=== PATIENT | male | born 1975 | race Caucasian/White ===

== ENCOUNTER → 2023-07-16 15:30 | Outpatient (CLI) | payer OTHER, SELFPAY ==
[2023-07-16 19:52] LABS: Basophils # 0.1 K/mm3 (0-0.2); Basophils % 0.9 % (0.1-2.0); Eosinophils # 0.2 K/mm3 (0.0-0.4); Eosinophils % 1.9 % (0.1-12.0); Hematocrit 46.4 % (42.0-52.0); Hemoglobin 15.9 g/dL (14.1-18.0); Lymphocytes # 2.6 K/mm3 (0.7-4.5); Lymphocytes % 30.7 % (10-50); Mean Corpuscular HGB Conc 34.2 g/dL (31.8-35.4); Mean Corpuscular Hemoglobin 29.9 pg (27.0-31.2); Mean Corpuscular Volume 87.5 fl (80-94); Mean Platelet Volume 9.4 fl (7.4-10.4); Monocytes # 0.5 K/mm3 (0.1-1.0); Neutrophils # 5.1 K/mm3 (1.8-7.8); Neutrophils % 60.5 % (37.0-80.0); Platelet Count 284 K/mm3 (142-424); Red Blood Count 5.31 M/mm3 (4.60-6.20); White Blood Count 8.4 K/mm3 (4.8-10.8)
[2023-07-16 20:19] LABS: 25-OH Vitamin D, Total 24.7 ng/mL (30-100)
[2023-07-16 20:24] LABS: Alanine Aminotransferase 36 U/L (12-78); Albumin Level 4.6 g/dl (3.5-5.0); Albumin/Globulin Ratio 1.4 (1.1-1.8); Alkaline Phosphatase 123 U/L (38-126); Anion Gap 16.1 mEq/L (5-15); Aspartate Amino Transferase 30 U/L (17-59); Bilirubin,Total 0.4 mg/dl (0.2-1.3); Blood Urea Nitrogen 8 mg/dl (9-20); Calcium 9.7 mg/dl (8.4-10.2); Carbon Dioxide 26 mmol/L (22.0-30.0); Chloride 98 mmol/L (98-107); Estimated Glomerular Filt Rate 143 ml/min (>60); GFR (African American) 173 ML/MIN (>60); Globulin 3.2 g/dL (1.3-3.2); Glucose 353 mg/dl (74-100); Potassium 4.1 mmoL/L (3.5-5.1); Sodium 136 mmol/L (136-145); Total Protein,Serum 7.8 g/dl (6.3-8.2)
[2023-07-16 20:57] LABS: Prostate Specific Ag Screen 0.8 ng/ml (0.0-4.0); Thyroid Stimulating Hormone 0.46 uIU/mL (0.465-4.68)
[2023-07-16 21:31] LABS: Hemoglobin A1C 10.3 % (4.0-6.0)
[2023-07-16 21:54] LABS: Microalbumin/Creatinine Ratio 11.6
[2023-07-16 21:58] LABS: Creatinine,Urine Random 59 mg/dL (Not Estab.)
== END ==
LOC: LAB.DROPOF 07-17 09:50
PROVIDERS: PCP Internal Medicine; Visit Provider Internal Medicine
DX: E11.9 Type 2 diabetes mellitus without complications (principal); E55.9 Vitamin D deficiency, unspecified; Z12.5 Encounter for screening for malignant neoplasm of prostate
CPT/HCPCS: 80053; 82043; 82306; 82570; 83036; 84443; 85025; G0103

== ENCOUNTER 2024-07-22 10:42 | Outpatient (CLI) | payer OTHER, SELFPAY ==
[2024-07-22 19:13] LABS: Albumin Level 4.8 g/dl (3.5-5.0); Chloride 103 mmol/L (98-107)
[2024-07-22 19:14] LABS: Potassium 4.7 mmoL/L (3.5-5.1); Sodium 137 mmol/L (136-145)
[2024-07-22 19:16] LABS: Alanine Aminotransferase 31 U/L (12-78); Aspartate Amino Transferase 30 U/L (17-59); Blood Urea Nitrogen 9 mg/dl (9-20); Estimated Glomerular Filt Rate 102 ml/min (>60); GFR (African American) 124 ML/MIN (>60)
[2024-07-22 19:17] LABS: Albumin/Globulin Ratio 1.6 (1.1-1.8); Alkaline Phosphatase 75 U/L (38-126); Anion Gap 11.7 mEq/L (5-15); Bilirubin,Total 0.7 mg/dl (0.2-1.3); Calcium 9.7 mg/dl (8.4-10.2); Carbon Dioxide 27 mmol/L (22.0-30.0); Chol/HDL Ratio 7.1 (1-3.5); Cholesterol 207 mg/dl (140-200); Glucose 120 mg/dl (74-100); HDL Cholesterol 29 mg/dl (40-60); Total Protein,Serum 7.8 g/dl (6.3-8.2); Triglycerides 237 mg/dl (30-150); VLDL Cholesterol 47 mg/dL (0-40)
[2024-07-22 19:28] LABS: Direct LDL Cholesterol 133.75 mg/dL (100-129)
== END 2024-07-22 23:59 | disposition home or self-care (01) ==
LOC: LAB.DROPOF 07-23 10:42
PROVIDERS: PCP Family Medicine; Visit Provider Family Medicine
DX: E11.9 Type 2 diabetes mellitus without complications (principal); Z79.84 Long term (current) use of oral hypoglycemic drugs; Z79.85 Long-term (current) use of injectable non-insulin antidiabetic drugs; I10 Essential (primary) hypertension
CPT/HCPCS: 80053; 80061

== ENCOUNTER 2024-10-16 10:29 | Day surgery (SDC) | payer OTHER, BC, SELFPAY ==
--- NOTE | 2024-10-15 10:35 | SUR.PREOP ---
1035: Attempted to pre op. No VM set up.
[2024-10-16 10:52] VITALS: BP 137/75; PULSE 80; RESP 18; TEMP 36.4; O2SAT 97; BMI 31.8
--- NOTE | 2024-10-16 10:54 | EXP.ANES.CKL ---
[facility] Disclaimer: The information contained in this section may have been updated after the patient was seen, as this information can be updated by other users. Medical History (Updated 07/22/24 @ 17:40 by Marcelo Davis MD) Colon cancer screening Laceration of thumb Conjunctivitis Diabetes type 2, uncontrolled Left otitis media Sinus infection Bruxism History of fracture of right ankle Depression Diabetes Social History Smoking Status: Never smoker alcohol intake: never substance use type: denies use current occupational status: employed Travel in the last 8 weeks: None Have you lived/traveled outside [place] in past 30 days?: No Contact w/someone who lives/traveled outside [place] past 30 days?: No Exposure to someone with infectious disease in past 14 days?: No Do you have a fever (greater than 100.4 F or 38 C)?: No Have you tested positive for COVID-19: No Exposed to someone with COVID-19 in past 14 days?: No Do you have a sore throat?: No Do you have a cough?: No Do you have any weakness?: No Do you have any diarrhea?: No Are you experiencing any unusual bleeding?: No Do you have any muscle aches/pain?: No Do you have any abdominal pain?: No Are you experiencing loss of taste or smell?: No [facility] Anesthesia Checklist Patient Identification Patient Identification: Arm Band and Verbal (Name & ) Structural Data Admitted From: Home Planned Operative Procedure/s: Colonoscopy Consent for Planned Operative Procedure(s) Verified: Yes Verified Documents: Surgical Consent and History and Physical NPO Status Verified Time NPO: 09:15 Additional verifications Fingerstick Blood Glucose: 182 Patient : No Anesthesia Reactions: No Cardiovascular Assessment Heart Sounds: S1 & S2 Pulse Rhythm: Irregular Peripheral Edema: No Airway Assessment Mallampati Score:: Class II C-Spine Mobility Assessed: Yes (FROM demonstrated, but C-5 protrusion) TMJ Mobility Assessed: Yes Dentition: Good Dentition (Nothing loose per pt.) Neurological Assessment Level of Consciousness: Awake, Alert, Appropriate and Follows Commands Hx Seizures: No Numbness or tingling in extremities: No Anesthesia Plan Anesthesia Risk discussed: Yes Anesthesia Plan: Verified ASA Class: III Anesthesia Type: MAC
[2024-10-16] MEDS: LACTATED RINGERS 1000ML 1,000 ML 25 ML IV (11:05)
[2024-10-16 11:07] LABS: POC Glucose,Bedside 182 (70-110)
[2024-10-16 11:32] VITALS: O2SAT 100
--- NOTE | 2024-10-16 11:39 | P.HP_ITS ---
History of Present Illness *Admission Date: 10/16/24 *Reason for visit:: Screening for colon cancer *History of present illness: Mr. Sun is a 49-year-old gentleman who is here for initial screening colonoscopy. The patient's mother had colon cancer in her mid 70s. The examination is deemed medically necessary for screening colonoscopy. The patient has been seen, interviewed and examined prior to the procedure by both myself and the anesthesia provider. [facility] Disclaimer: The information contained in this section may have been updated after the patient was seen, as this information can be updated by other users. Medical History (Updated 10/16/24 @ 11:40 by Cory Ponce II, MD) Colon cancer screening Laceration of thumb Conjunctivitis Diabetes type 2, uncontrolled Left otitis media Sinus infection Bruxism History of fracture of right ankle Depression Diabetes Social History Smoking Status: Never smoker alcohol intake: never substance use type: denies use current occupational status: employed Travel in the last 8 weeks: None Have you lived/traveled outside [place] in past 30 days?: No Contact w/someone who lives/traveled outside [place] past 30 days?: No Exposure to someone with infectious disease in past 14 days?: No Do you have a fever (greater than 100.4 F or 38 C)?: No Have you tested positive for COVID-19: No Exposed to someone with COVID-19 in past 14 days?: No Do you have a sore throat?: No Do you have a cough?: No Do you have any weakness?: No Do you have any diarrhea?: No Are you experiencing any unusual bleeding?: No Do you have any muscle aches/pain?: No Do you have any abdominal pain?: No Are you experiencing loss of taste or smell?: No Other Medical History Have you received the Pneumonia Vaccine: No Review of Systems Review of Systems Review of systems (narrative): Negative *Cardiovascular Comments: Negative *Gastrointestinal Comments: Negative *Genitourinary Comments: Negative *Musculoskeletal Comments: Negative *Neurologic Comments: Negative Meds Home Medications and Allergies Home Medications ?Medication ?Instructions ?Recorded ?Confirmed ?Type amitriptyline 25 mg tablet 25 mg PO HS 07/07/24 10/16/24 History dapagliflozin propanediol 10 mg 10 mg PO DAILY 07/07/24 10/16/24 History tablet (Farxiga) fluoxetine 20 mg capsule 20 mg PO DAILY 07/07/24 10/16/24 History lancing device (TRUEdraw Lancing #1 ea 07/07/24 07/07/24 History Device) lisinopril 10 mg tablet 10 mg PO DAILY 07/07/24 10/16/24 History metformin 1,000 mg tablet 1,000 mg PO DAILY 07/07/24 10/16/24 History atorvastatin 20 mg tablet 20 mg PO DAILY #30 tabs 07/25/24 10/16/24 Rx semaglutide 1 mg/dose (4 mg/3 mL) 1 mg (0.75 mL) SQ QWEEK #3 mL 07/25/24 10/16/24 Rx subcutaneous pen injector (Ozempic) New Prescriptions to Start Prescriptions: Allergies Allergy/AdvReac Type Severity Reaction Status Date / Time No Known Allergies Allergy Verified 07/22/24 10:01 Exam Data for Last 24 hours Vital signs and Labs for Last 24 Hours: Temp Pulse Resp BP Pulse Ox O2 Del Method O2 Flow Rate 97.5 F L 80 18 137/75 97 Nasal Cannula 5 10/16/24 10:52 10/16/24 10:52 10/16/24 10:52 10/16/24 10:52 10/16/24 10:52 10/16/24 11:32 10/16/24 11:32 Laboratory Results - last 24 hr 10/16/24 10:58: POC Glucose 182 H I & O for Last 24 hours: Intake & Output 10/13/24 10/14/24 10/15/24 10/16/24 23:59 23:59 23:59 23:59 Weight 235 lb *Routine HEENT Exam Head: Present normocephalic Eye: Present EOMI and PERRL ENT: Present mucous membranes moist *Routine Neck Exam Neck: Present supple *Routine Respiratory Exam Respiratory: Present CTA bilaterally *Routine Cardiovascular Exam Cardiovascular: Present RRR *Routine Abdominal Exam Abdominal: Present soft and normoactive bowel sounds; Absent tenderness *Routine Rectal Exam Rectal:: deferred *Routine Genitalia Exam Genitalia:: deferred *Routine Extremities Exam Extremities: Absent cyanosis, clubbing or edema *Routine Skin Exam Skin: Present warm; Absent rash *Routine Neurological Exam Neurological: Present alert and oriented X3 Assessment and Plan *Assessment and plan (1) Colon cancer screening: Status: Acute Category: Medical Code(s): Z12.11 - Encounter for screening for malignant neoplasm of colon (2) Family history of colon cancer in mother: Status: Acute Category: Medical Code(s): Z80.0 - Family history of malignant neoplasm of digestive organs Plan A/P: 1. Screening for colon cancer is the preprocedural diagnosis. The patient's mother had colon cancer in her mid 70s. The patient will be anesthetized/sedated using MAC sedation. The patient has been seen and examined. Cardiac and lung assessment prior to the examination is stable. Proceed with planned initial screening colonoscopy
--- NOTE | 2024-10-16 11:41 | P.PCN_ITS ---
[facility] Procedure Note Date: 10/16/24 Time: 12:04 Procedure Note:: Colonoscopy Procedure Report: Colonoscopy with cold snare polypectomy Endoscopist: Cory Ponce II, MD Referring physician: Marcelo Davis MD Date of Procedure: October 16, 2023 Equipment: Olympus 190 variable stiffness pediatric colonoscope Sedation: MAC sedation Indication: Mr. uSn is a 49-year-old gentleman who is here for initial screening colonoscopy. His mother had colon cancer in her mid 70s. He reports no abdominal pain, weight loss, change in his bowel habits or rectal bleeding. Procedure: Prior to the procedure, a history and physical exam was performed, and patient's medications and allergies were reviewed. The risks, benefits and alternatives of the sedation and procedure were discussed with the patient. All questions were answered and informed consent was obtained. The patient was brought to the procedure room. Patient identification and proposed procedure were verified by the physician and the nurse. The patient was placed in a left lateral decubitus position and the scope was passed under direct vision. Throughout the procedure, the patient's blood pressure, pulse, and oxygen saturations were monitored continuously. The colonoscopy was accomplished without difficulty. The patient tolerated the procedure well. Findings: On digital rectal examination there was normal rectal tone. There were no external hemorrhoids. The prostate was 2+, mildly firm but symmetric without nodules. The colonoscope was introduced through the anal canal to the rectum and advanced to the cecum. The ileocecal valve was identified. The preparation was fair to poor especially in the right colon and the cecal cap was full of solid residue and liquid impairing visualization. The scope was advanced a short distance into the ileum which appeared grossly normal. The scope was then withdrawn into the colon. There were 2 polyps (ascending x 1 (6 mm) and sigmoid x 1 (4 mm)). Both of these were removed via cold snare polypectomy. The remaining cecum, ascending, transverse, descending, sigmoid and rectum were grossly normal. There was abundance of liquid and some solid residue making visualization poor in certain areas. There were no other mucosal abnormalities identified. Upon retroflexion within the rectum there were grade 2 internal hemorrhoids.The preparation was fair to poor throughout with [place] Preparation Score of 5 out of 9. The cecal time was 17 minutes. Impression: 1. Colonic polyps x 2 2. Grade 2 internal hemorrhoids 3. Fair to poor bowel preparation Plan: I will follow-up the polyp histology and recommend repeat surveillance colonoscopy again in 5 years. I would encourage psyllium fiber supplementation on a maintenance basis.
[2024-10-16 12:07] VITALS: BP 123/70; PULSE 99; RESP 14; TEMP 36.5; O2SAT 95
[2024-10-16 12:17] VITALS: BP 119/69; PULSE 96; RESP 15; O2SAT 99
== END 2024-10-16 13:00 | disposition home or self-care (01) ==
PROVIDERS: PCP Family Medicine; Visit Provider Internal Medicine Gastroenterology
PROC: (CPT 45385; principal; 2024-10-16 12:00)
DX: K63.5 Polyp of colon (principal); K64.1 Second degree hemorrhoids; Z12.11 Encounter for screening for malignant neoplasm of colon; Z80.0 Family history of malignant neoplasm of digestive organs
CPT/HCPCS: 45385; 82962; J2704; J7120

== ENCOUNTER 2024-10-24 19:03 | Outpatient (CLI) | payer OTHER, BC, SELFPAY ==
[2024-10-24 19:23] LABS: Basophils # 0.1 K/mm3 (0-0.2); Basophils % 1.2 % (0.1-2.0); Eosinophils # 0.2 K/mm3 (0.0-0.4); Eosinophils % 1.9 % (0.1-12.0); Hematocrit 44.3 % (42.0-52.0); Hemoglobin 15.4 g/dL (14.1-18.0); Mean Corpuscular HGB Conc 34.8 g/dL (31.8-35.4); Mean Corpuscular Volume 89.3 fl (80-94); Mean Platelet Volume 10.6 fl (7.4-10.4); Monocytes # 0.7 K/mm3 (0.1-1.0); Monocytes % 7.6 % (1.7-9.3); Neutrophils # 5.6 K/mm3 (1.8-7.8); Neutrophils % 65.5 % (37.0-80.0); Platelet Count 318 K/mm3 (142-424); Red Blood Count 4.96 M/mm3 (4.60-6.20); Red Cell Distribution Width 12.3 % (11.5-17.5); White Blood Count 8.6 K/mm3 (4.8-10.8)
[2024-10-24 19:42] LABS: Albumin Level 4.7 g/dl (3.5-5.0); Chloride 104 mmol/L (98-107); Potassium 4.6 mmoL/L (3.5-5.1); Sodium 134 mmol/L (136-145)
[2024-10-24 19:44] LABS: Alanine Aminotransferase 33 U/L (12-78); Blood Urea Nitrogen 13 mg/dl (9-20); Estimated Glomerular Filt Rate 119 ml/min (>60); GFR (African American) 144 ML/MIN (>60)
[2024-10-24 19:45] LABS: Albumin/Globulin Ratio 1.8 (1.1-1.8); Alkaline Phosphatase 112 U/L (38-126); Anion Gap 11.6 mEq/L (5-15); Aspartate Amino Transferase 29 U/L (17-59); Bilirubin,Total 0.4 mg/dl (0.2-1.3); Calcium 9.1 mg/dl (8.4-10.2); Carbon Dioxide 23 mmol/L (22.0-30.0); Chol/HDL Ratio 5.1 (1-3.5); Cholesterol 112 mg/dl (140-200); Globulin 2.6 g/dL (1.3-3.2); Glucose 113 mg/dl (74-100); HDL Cholesterol 22 mg/dl (40-60); Total Protein,Serum 7.3 g/dl (6.3-8.2); Triglycerides 109 mg/dl (30-150); VLDL Cholesterol 22 mg/dL (0-40)
[2024-10-24 19:56] LABS: Direct LDL Cholesterol 71.75 mg/dL (100-129)
[2024-10-24 20:00] LABS: Hemoglobin A1C 6.3 % (4.0-6.0)
== END 2024-10-24 23:59 | disposition home or self-care (01) ==
LOC: LAB.DROPOF 19:04
PROVIDERS: PCP Family Medicine; Visit Provider Family Medicine
DX: R06.00 Dyspnea, unspecified (principal); E11.9 Type 2 diabetes mellitus without complications
CPT/HCPCS: 80053; 80061; 83036; 85025

== ENCOUNTER 2024-11-18 06:30 | Outpatient (CLI) | payer OTHER, BC, SELFPAY ==
--- NOTE | 2024-11-18 | CA_ITS ---
APPROVED REPORT Exam: Exercise Treadmill Technologist: Tania Valdez Ht: 5 ft 11 in Wt: 242 lbs BSA: 2.29 m2 HR: 81 bpm BP: 136/80 mmHg Rhythm: NSR Medical History Cardiac Risk Factors: Diabetes (non-insulin), , FHX of CAD Stress Test Details HR Resting HR: 81 bpm Max Heart Rate (APMHR): 170 bpm Max HR Achieved: 154 bpm Target HR (85% APMHR): 145 bpm % of APMHR: 91 Recovery HR: 125 bpm HR response to stress: Normal HR response to stress BP Resting BP: 136.0/80.0 mmHg Max BP: 192.0/95.0 mmHg Recovery BP: 136.0/84.0 mmHg BP response to stress: Normal blood pressure response to stress. ECG Resting ECG: NSR Stress EC.[address] depression Clinical Exercise duration: 9:14 min Exercise capacity: 10.6 METs Overall Exercise Capacity for Age: Average Stress ECG Conclusion During lexiscan pt experinced dyspnea and leg fatigue. Ectopy: PVCs ST changes: < 1mm ST depression. Conclusion: Average exercise capacity. Normal EKG response to exercise. Electronically signed by : Karina Chan MD 11/19/2024 02:07:55
--- NOTE | 2024-11-18 06:34 | NM_ITS ---
APPROVED REPORT Exam: Nuclear Stress Test Indication: Fatigue, DM, High cholesterol, Family history Patient Location: Outpatient Stress Tech: Eva Esquivel ND Tech:Analisa Kurtz, ARRT, RT (R)(N) Ht: 6 ft 0 in Wt: 235 lbs HR: 82 bpm BP: 136/80 mmHg BSA: 2.28 m2 TID: 1.27 History: Fatigue, DM, High cholesterol, Family history Procedure: Patient exercised on Dirk protocol 9:14 minutes and sec, resting heart rate 82 bpm, resting blood pressure 136/80 mmHg, with exercise maximum heart rate achived was 154 bpm which is 90 % of the maximum predicted heart rate and blood pressure was 192/95 mmHg. Test was stopped due to SOB. Patient denied any complaint of chest pain. Patient has Average exercise capacity, achieved 10.6 METs of workload on treadmill, the blood pressure response to exercise was Normal. Cardiac Stress and Resting SPECT Images: Cardiac Stress and Resting SPECT images were obtained using technetium 99m Myoview 29.0 mCi stress and 9.87 mCi at rest. Resting and stress imaging in supine and prone positions demonstrate no evidence of focal fixed or reversible perfusion defects. There is increase in transient ischemic dilatation ratio (TID 1.27), suggestive of possible multivessel disease or balanced ischemia. Gated imaging demonstrates low-normal global LV systolic function. LVEF is calculated at 50%. Conclusion: No evidence of focal fixed or reversible perfusion defects. There is increase in transient ischemic dilatation ratio (TID 1.27), suggestive of possible multivessel disease or balanced ischemia. Gated imaging demonstrates low-normal global LV systolic function. LVEF is calculated at 50%. Electronically signed by : Karina Chan MD 11/19/2024 02:05:45
[2024-11-18] MEDS: SODIUM CHLORIDE 0.9% 10ML SYR (RAD ONLY) 10 ML IV ×2 (08:43)
[2024-11-18] MEDS: ISOTOPE MYOVIEW (PER STUDY) 1 DOSE IV (08:43)
== END 2024-11-18 23:59 | disposition home or self-care (01) ==
LOC: RAD 06:30
PROVIDERS: PCP Family Medicine; Visit Provider Family Medicine
DX: R06.09 Other forms of dyspnea (principal)
CPT/HCPCS: 78452; 93017; 93018; A9502

== ENCOUNTER 2025-01-19 09:24 | Outpatient (CLI) | payer OTHER, BC, SELFPAY ==
[2025-01-19 19:59] LABS: Alanine Aminotransferase 30 U/L (12-78); Albumin Level 4.7 g/dl (3.5-5.0); Albumin/Globulin Ratio 1.5 (1.1-1.8); Alkaline Phosphatase 105 U/L (38-126); Anion Gap 18.1 mEq/L (5-15); Aspartate Amino Transferase 29 U/L (17-59); Bilirubin,Total 0.7 mg/dl (0.2-1.3); Blood Urea Nitrogen 10 mg/dl (9-20); Calcium 9.6 mg/dl (8.4-10.2); Carbon Dioxide 28 mmol/L (22.0-30.0); Chloride 97 mmol/L (98-107); Chol/HDL Ratio 4.5 (1-3.5); Cholesterol 150 mg/dl (140-200); Estimated Glomerular Filt Rate 102 ml/min (>60); GFR (African American) 124 ML/MIN (>60); Globulin 3.1 g/dL (1.3-3.2); Glucose 89 mg/dl (74-100); HDL Cholesterol 33 mg/dl (40-60); Potassium 4.1 mmoL/L (3.5-5.1); Sodium 139 mmol/L (136-145); Total Protein,Serum 7.8 g/dl (6.3-8.2); Triglycerides 191 mg/dl (30-150); Uric Acid 5.1 mg/dl (3.5-8.5); VLDL Cholesterol 38 mg/dL (0-40)
[2025-01-19 20:10] LABS: Direct LDL Cholesterol 81.78 mg/dL (100-129)
[2025-01-19 21:50] LABS: Hemoglobin A1C 6.1 % (4.0-6.0)
[2025-01-21 08:42] LABS: Testosterone,Total 590 ng/dL (264-916)
== END 2025-01-19 23:59 | disposition home or self-care (01) ==
LOC: LAB.DROPOF 01-20 14:20
PROVIDERS: PCP Family Medicine; Visit Provider Family Medicine
DX: E11.9 Type 2 diabetes mellitus without complications (principal); M10.9 Gout, unspecified; N52.9 Male erectile dysfunction, unspecified; S30.1XXA Contusion of abdominal wall, initial encounter
CPT/HCPCS: 80053; 80061; 83036; 84403; 84550; G0103